=== PATIENT | female | born 1960 | race Caucasian/White ===

== ENCOUNTER → 2022-04-02 | Outpatient (CLI) | payer OTHER ==
[~2022-04-02] MED LIST: CALTRATE 600 +1 EAC1 PO; CELEXA10 MG PO; CETIRIZINE HCL5 MG PO; NORCO 10-325 T1 EACH PO; NORCO 5-325 TA1 EACH PO; NORVASC 5 MG TAB5 MG PO; PRINIVIL20 MG PO; PROBIOTIC; RESTASIS 0.05%1 EACH OU; VOLTAREN EC 7575 MG PO; WOMEN'S DAILY1 EAC1 PO; ZYRTEC10 MG PO
[2022-04-02 09:35] LABS: HEMOGLOBIN 15.2 gm/dl (12.3-15.3); RED BLOOD COUNT 4.87 M/UL (4.00-5.10)
[2022-04-02 09:54] LABS: BUN/CREATININE RATIO 26 (0-10)
== END ==
LOC: OPSV2 08:00 → EDSTATUS 08:00 → OPSV2 08:27
PROVIDERS: Orthopaedic Surgery
DX: Z01.818 Encounter for other preprocedural examination (principal); M17.12 Unilateral primary osteoarthritis, left knee
CPT/HCPCS: 36415; 71046; 80048; 85027; 93005

== ENCOUNTER → 2022-04-07 | Outpatient (CLI) | payer OTHER ==
[~2022-04-07] MED LIST changes: +ACETAMINOPHEN500 MG PO
== END ==
LOC: ECHO 08:26
DX: R01.1 Cardiac murmur, unspecified (principal); I08.3 Combined rheumatic disorders of mitral, aortic and tricuspid valves
CPT/HCPCS: ECHO; 93306

== ENCOUNTER → 2022-04-16 | Outpatient (CLI) | payer OTHER ==
[~2022-04-16] MED LIST changes: +CYCLOBENZAPRINE10 MG PO; +ELIQUIS 2.5 MG2.5 MG PO; +OXYCODON-ACETA1 EAC1 PO; +ZOFRAN 4 MG TAB4 MG PO
[2022-04-16 10:19] LABS: BUN/CREATININE RATIO 24 (0-10)
== END ==
LOC: LAB 09:24
PROVIDERS: Orthopaedic Surgery
DX: Z01.812 Encounter for preprocedural laboratory examination (principal)
CPT/HCPCS: 36415; 80048; 86850; 86900; 86901

== ENCOUNTER → 2022-04-17 | Day surgery (SDC) | payer OTHER ==
[~2022-04-17] VITALS: Ht 172.7 cm; Wt 87.5 kg
== END | disposition home or self-care (01) ==
LOC: OR 05:43
DX: M17.12 Unilateral primary osteoarthritis, left knee (principal); I10 Essential (primary) hypertension; G89.18 Other acute postprocedural pain; F17.210 Nicotine dependence, cigarettes, uncomplicated; Z79.01 Long term (current) use of anticoagulants; Z79.899 Other long term (current) drug therapy
CPT/HCPCS: 73560; 97116; 97161; 97166; 97535; C1713; C1776; J0171; J0690; J1100; J1170; J2250; J2274; J2405; J2704; J2795; J3010; J3370